=== PATIENT | female | born 1990 | race Two or more races ===

== ENCOUNTER 2020-02-05 14:56 | Outpatient (CLI) | payer OTHER | END 2020-02-05 17:15 | disposition home or self-care (01) | LOC: OFIC 805 14:56 | PROVIDERS: ATTEND Otolaryngology Otology & Neurotology | DX: J34.3 Hypertrophy of nasal turbinates (principal); J30.89 Other allergic rhinitis ==

== ENCOUNTER 2021-04-17 08:53 | Outpatient (CLI) | payer OTHER | END 2021-04-17 09:12 | disposition home or self-care (01) | LOC: MRI 08:53 | PROVIDERS: ATTEND General Practice | DX: G44.89 Other headache syndrome (principal); H54.7 Unspecified visual loss | CPT/HCPCS: 70551 ==

== ENCOUNTER 2024-01-21 09:28 | Inpatient (IN) | payer OTHER ==
[~2024-01-21] VITALS: Ht 157.5 cm; Wt 64.0 kg
[2024-01-31] VITALS (7 sets, daily range): BP systolic 107–121; BP diastolic 50–72
[2024-01-31] MEDS ORDERED: LIDOCAINE HCL 1% 10ML VIAL ONE ×2 (00:38→03:15)
[2024-01-31] MEDS ORDERED: OXYTOCIN 20 UNITS/1000ML RL PIGGYBAG IV ONE (00:38)
[2024-01-31] MEDS ORDERED: CHLORHEXIDINE GLUCONATE 120 ML BOTTLE TOP ONE (00:38)
[2024-01-31] MEDS ORDERED: ERYTHROMYCIN BASE OPHT 1GM EACH TUBE OP ONE ×2 (00:38→05:15)
[2024-01-31] MEDS ORDERED: RINGERS SOLUTION,LACTATED 1,000 ML IV SCH (01:00)
[2024-01-31] MEDS ORDERED: IRON236 MG PO (01:12)
[2024-01-31] MEDS ORDERED: PRENATABS RX T1 EACH PO (01:12)
[2024-01-31 01:20] LABS: URINE APPEARANCE Clear; URINE BILIRRUBIN Negative (NEGATIVE); URINE BLOOD Negative; URINE COLOR Yellow; URINE GLUCOSE Negative (NEGATIVE); URINE LEUKOCYTE Negative; URINE NITRATE Negative; URINE PROTEIN Negative (NEGATIVE)
[2024-01-31 01:24] LABS: URINE BACTERIA 536.7 uL (0.0-1933); URINE EPITHELIAL CELLS 6.1 uL (0.0-38.8); URINE RBC 2.9 uL (0.0-20.8); URINE WBC 5.7 uL (0.0-23.2)
[2024-01-31 01:28] LABS: URINE KETONE 80 (NEGATIVE)
[2024-01-31 01:42] LABS: BILIRUBIN TOTAL 0.5 mg/dL (0.3-1.2); CALCIUM 9.1 mg/dL (8.5-10.1); CREATININE SERUM 0.62 mg/dL (0.55-1.02); GFR 110.85; POTASSIUM 3.93 mEq/L (3.5-5.1)
[2024-01-31 01:44] LABS: HEMATOCRIT 34.9 % (36.0-45.00); HEMOGLOBIN 12.2 g/dL (12.0-15.00); MEAN CELL VOLUME 93.3 fL (80.00-100.00); MEAN CORPUSCULAR HEMOGLOBIN 32.5 pg (27.00-32.0); MEAN CORPUSCULAR HGB CONC 34.8 g/dl (32.0-36.0); PLATELET COUNT 180 K/uL (150-450); RED BLOOD COUNT 3.75 M/uL (4.00-6.00); RED CELL DISTRIBUTION WIDTH 12.9 % (11.5-14.5)
[2024-01-31 01:52] LABS: INR < 0.93; PROTHROMBIN TIME 9.9 SECONDS (9.0-11.5)
[2024-01-31] MEDS ORDERED: CHLORHEXIDINE GLUCONATE 120 ML BOTTLE TP SCH (04:30)
[2024-01-31] MEDS ORDERED: OXYTOCIN 1,000 ML IV SCH (04:30)
[2024-01-31] MEDS ORDERED: OxyCODONE HCL/APAP UD (PERCOCET) PO PRN (04:30)
[2024-01-31] MEDS ORDERED: LIDOCAINE HCL 1% 10ML VIAL PERCUT ONE (05:15)
[2024-01-31] MEDS ORDERED: LIDOCAINE HCL 1% 10ML VIAL IJ ONE (05:15)
[2024-01-31] MEDS ORDERED: DOCUSATE SODIUM 100MG CAP PO SCH (09:00)
[2024-02-01] VITALS: BP 96/65
[2024-02-01 08:00] VITALS: BP 99/60
[2024-02-01 19:37] VITALS: BP 105/70
[2024-02-02] VITALS: BP 97/60
[2024-02-02 08:00] VITALS: BP 103/68
== END 2024-02-02 13:47 | disposition home or self-care (01) | DRG 807 ==
LOC: OB/GYN 01-31 00:34 → LDR 01-31 00:34 → OB/GYN 01-31 06:42
PROVIDERS: ADMIT Obstetrics & Gynecology Maternal & Fetal Medicine; ATTEND Obstetrics & Gynecology Maternal & Fetal Medicine
PROC: 10E0XZZ Delivery of Products of Conception, External Approach (ICD-10-PCS; principal; 2024-01-31)
PROC: 0KQM0ZZ Repair Perineum Muscle, Open Approach (ICD-10-PCS; 2024-01-31)
PROC: 4A1HXCZ Monitoring of Products of Conception, Cardiac Rate, External Approach (ICD-10-PCS; 2024-01-31)
DX: O70.1 Second degree perineal laceration during delivery (principal); Z37.0 Single live birth; Z3A.38 38 weeks gestation of pregnancy; Z20.822 Contact with and (suspected) exposure to COVID-19